=== PATIENT | female | born 1975 | race African-American/Black ===

== ENCOUNTER 2017-12-15 23:02 | Emergency (ER) | payer OTHER ==
[2017-12-15] MEDS ORDERED: Ondansetron HCl/PF 4 MG/2 ML Vial ONE (23:38)
[2017-12-15 23:46] LABS: Bilirubin Negative (Negative); Blood, Urine Moderate (Negative); Clarity CLEAR (Clear); Glucose, Urine (Dipstick) Negative (Negative); Leukocyte Negative (Negative); Nitrite Negative (Negative); Protein, Urine (Dipstick) Negative (Neg-Trace); Specific Gravity, Urine 1.026 (1.002-1.036)
[2017-12-15 23:49] LABS: Bacteria/HPF Rare-Few HPF (None Seen); Hyaline Casts/LPF 0-3 HYALINE CAST LPF (0-3 Hyaline); WBC/HPF 0-3 HPF (0-3)
[2017-12-15 23:55] LABS: Hemoglobin 11.8 g/dL (12.0-16.0); Mean Corpuscular HGB CONC 32.6 g/dL (32.0-36.0); Mean Corpuscular Hemoglobin 30.3 pg (27.0-31.0); Mean Platelet Volume 7.5 fL (7.4-10.4); Platelet Count 293 thou/uL (130-400); RBC Distribution Width 12.9 % (11.5-14.5); Red Blood Cell (RBC) Count 3.88 mill/uL (4.20-5.40); White Blood Cell (WBC) Count 8.7 thou/uL (4.8-10.8)
[2017-12-16 00:07] LABS: Band 14 % (5-11); Eosinophils 2 % (0-10); Lymphocytes 48 % (21-51); MDiff Complete? YES; Monocytes 19 % (0-10); Neutrophil 17 % (42-75)
[2017-12-16 00:08] LABS: ALT (SGPT) 12 U/L (8-55); AST (SGOT) 14 U/L (5-34); Albumin 3.9 g/dL (3.5-5.0); Alkaline Phosphatase 66 U/L (40-150); Anion Gap 12 mmol/L (10-20); BUN (Urea Nitrogen) 15 mg/dL (7.0-18.7); Bilirubin, Total 0.2 mg/dL (0.2-1.2); Calc. Creatinine Clearance 0 mL/min (70-130); Carbon Dioxide 23 mmol/L (22-29); Chloride 106 mmol/L (98-107); Estimated GFR-MDRD 84; Globulin 3.9 g/dL (2.4-3.5); Glucose 89 mg/dL (70-105); Potassium 3.4 mmol/L (3.5-5.1); Protein, Total 7.8 g/dL (6.0-8.3); Sodium 138 mmol/L (136-145)
[2017-12-16] MEDS ORDERED: methylPREDNISolone Sod Succ/PF 125 MG/2 ML VIAL ONE (01:12)
[2017-12-16] MEDS ORDERED: Water For Inject, Bacteriostat 0 ML ONE (01:12)
[2017-12-16] MEDS ORDERED: Water For Inject, Bacteriostat 30 ML ONE (01:13)
== END 2017-12-16 02:00 | disposition home or self-care (01) ==
LOC: ERS 23:02
DX: K50.90 Crohn's disease, unspecified, without complications (principal); I10 Essential (primary) hypertension; F17.210 Nicotine dependence, cigarettes, uncomplicated; Z79.899 Other long term (current) drug therapy
CPT/HCPCS: 80053; 81003; 81015; 85025; 86140; 96361; 96372; 96374; 96375; 96376; J2270; J2405; J2930

== ENCOUNTER 2017-12-22 08:32 | Emergency (ER) | payer OTHER ==
[2017-12-22 09:30] LABS: Bilirubin Negative (Negative); Blood, Urine Negative (Negative); Clarity CLEAR (Clear); Glucose, Urine (Dipstick) Negative (Negative); Leukocyte Negative (Negative); Nitrite Negative (Negative); Protein, Urine (Dipstick) Negative (Neg-Trace); Specific Gravity, Urine 1.015 (1.002-1.036); Urobilinogen 0.2 mg/dL (0.2-1.0); pH, Urine 6.5 (5.0-9.0)
[2017-12-22] MEDS ORDERED: methylPREDNISolone Sod Succ/PF 125 MG/2 ML VIAL ONE (09:41)
[2017-12-22] MEDS ORDERED: Water For Inject, Bacteriostat 30 ML ONE (09:41)
[2017-12-22] MEDS ORDERED: Morphine 2 MG/ML SYRINGE ONE (09:41)
[2017-12-22 09:54] LABS: ALT (SGPT) 11 U/L (8-55); AST (SGOT) 18 U/L (5-34); Albumin 3.5 g/dL (3.5-5.0); Alkaline Phosphatase 68 U/L (40-150); Anion Gap 13 mmol/L (10-20); BUN (Urea Nitrogen) 9 mg/dL (7.0-18.7); Bilirubin, Total 0.2 mg/dL (0.2-1.2); Calc. Creatinine Clearance 0 mL/min (70-130); Calcium 8.7 mg/dL (7.8-10.44); Carbon Dioxide 21 mmol/L (22-29); Chloride 105 mmol/L (98-107); Estimated GFR-MDRD Greater than 90; Globulin 4.2 g/dL (2.4-3.5); Glucose 77 mg/dL (70-105); Lipase 12 U/L (8-78); Potassium 3.7 mmol/L (3.5-5.1); Protein, Total 7.7 g/dL (6.0-8.3); Sodium 135 mmol/L (136-145)
[2017-12-22 09:58] LABS: Band 4 % (5-11); Hemoglobin 12.4 g/dL (12.0-16.0); Lymphocytes 43 % (21-51); MDiff Complete? YES; Mean Corpuscular HGB CONC 32.5 g/dL (32.0-36.0); Mean Corpuscular Volume 92.4 fl (81.0-99.0); Monocytes 17 % (0-10); Neutrophil 36 % (42-75); Platelet Count 376 thou/uL (130-400); RBC Distribution Width 13.1 % (11.5-14.5); Red Blood Cell (RBC) Count 4.15 mill/uL (4.20-5.40); White Blood Cell (WBC) Count 9.6 thou/uL (4.8-10.8)
--- NOTE | 2017-12-22 10:00 | CT ---
CT OF THE ABDOMEN AND PELVIS WITH IV CONTRAST: Date: 12/22/17 PROVIDED CLINICAL HISTORY: Abdominal pain, history of Crohn's disease. FINDINGS: Comparison made with the study dated 10/01/08. The visualized lung bases are free of significant opacity. There is conspicuous mural thickening and pericolonic fat stranding involving the distal transverse c olon, splenic flexure, and descending colon compatible with inflammatory colitis. There is no evidenc e for bowel obstruction. There is no evidence for intra-abdominal fluid collection or free air. No pn eumatosis or portal venous gas is evident. The liver, spleen, pancreas, kidneys, and adrenal glands demonstrate an unremarkable CT appearance. There is trace nonspecific free pelvic fluid. The uterus is not visualized and is presumed surgically absent. The appendix appears normal. The osseous structures demonstrate no concerning osteoblastic or osteolytic lesions. IMPRESSION: Mural thickening and pericolonic fat stranding involving the distal transverse, splenic flexure, and descending colon as described above, compatible with patient's history of inflammatory bowel disease. POS: [facility]
[2017-12-22] MEDS ORDERED: ISOVUE-370 76%-LOCM 1 ML ONE (10:42)
== END 2017-12-22 11:12 | disposition home or self-care (01) ==
LOC: ERS 08:32
DX: K50.90 Crohn's disease, unspecified, without complications (principal); I10 Essential (primary) hypertension; F17.210 Nicotine dependence, cigarettes, uncomplicated; Z79.899 Other long term (current) drug therapy
CPT/HCPCS: 74177; 80053; 81003; 83690; 85025; 96361; 96374; 96375; J2270; J2930

== ENCOUNTER 2018-01-02 18:32 | Emergency (ER) | payer OTHER ==
[2018-01-02] MEDS ORDERED: traMADol HCl 50 MG TAB ONE (20:42)
[2018-01-02 21:18] LABS: Anion Gap 12 mmol/L (10-20); BUN (Urea Nitrogen) 11 mg/dL (7.0-18.7); Calc. Creatinine Clearance 0 mL/min (70-130); Calcium 8.9 mg/dL (7.8-10.44); Carbon Dioxide 28 mmol/L (22-29); Chloride 101 mmol/L (98-107); Estimated GFR-MDRD 79; Glucose 87 mg/dL (70-105); Potassium 3.5 mmol/L (3.5-5.1); Sodium 137 mmol/L (136-145)
== END 2018-01-02 21:46 | disposition home or self-care (01) ==
LOC: ERS 18:32
DX: M19.90 Unspecified osteoarthritis, unspecified site (principal); I10 Essential (primary) hypertension; K50.90 Crohn's disease, unspecified, without complications; F17.210 Nicotine dependence, cigarettes, uncomplicated; Z79.899 Other long term (current) drug therapy
CPT/HCPCS: 36415; 80048; 83880; 99283